=== PATIENT | female | born 1970 | race African-American/Black ===

== ENCOUNTER 2017-03-14 14:54 | Outpatient (CLI) | payer OTHER ==
--- NOTE | 2017-03-22 16:52 | MMO ---
BILATERAL SCREENING MAMMOGRAMS: DATE: 03/14/2017 COMPARISON: An outside exam from [facility] dated 2013. This patient's mammogram was interpreted with the assistance of computer-aided detection. FINDINGS: Heterogeneously dense glandular pattern. Benign-appearing calcifications. No evidence of mass or dis tortion. No interval change identified. IMPRESSION: BI-RADS 2: Benign findings. Recommend one year follow-up. POS: [facility]
== END 2017-03-14 14:55 | disposition home or self-care (01) ==
LOC: SCSMAMMO 14:54
PROVIDERS: ATTEND Internal Medicine
DX: Z12.31 Encounter for screening mammogram for malignant neoplasm of breast (principal)
CPT/HCPCS: 77067; G0202

== ENCOUNTER 2017-07-16 00:35 | Emergency (ER) | payer OTHER ==
[2017-07-16 01:26] LABS: #Basophils 0.2 thou/uL (0.0-0.2); #Eosinphils 0.1 thou/uL (0.0-0.7); #Lymphocytes 4.1 thou/uL (1.20-3.40); #Monocytes 0.8 thou/uL (0.11-0.59); #Neutrophils 5.5 thou/uL (1.40-6.50); %Basophils 1.5 % (0.0-1.0); %Eosinophils 1.4 % (0.0-10.0); %Lymphocytes 38.3 % (21.0-51.0); %Monocytes 7.5 % (0.0-10.0); %Neutrophils 51.4 % (42.0-75.0); Hemoglobin 13.8 g/dL (12.0-16.0); Mean Corpuscular HGB CONC 34.2 g/dL (32.0-36.0); Mean Corpuscular Hemoglobin 26.3 pg (27.0-31.0); Mean Corpuscular Volume 76.8 fl (81.0-99.0); Mean Platelet Volume 7.7 fL (7.4-10.4); Platelet Count 313 thou/uL (130-400); RBC Distribution Width 12.6 % (11.5-14.5); Red Blood Cell (RBC) Count 5.25 mill/uL (4.20-5.40); White Blood Cell (WBC) Count 10.7 thou/uL (4.8-10.8)
[2017-07-16 01:35] LABS: PTT 32.1 SEC (22.9-36.1)
[2017-07-16 01:36] LABS: D-Dimer Test 1.31 *mcg/mL (0.27-0.43); INR-International Normal Ratio 0.9; Prothrombin Time 12.6 SEC (12.0-14.7)
[2017-07-16 01:47] LABS: ALT (SGPT) 18 U/L (8-55); AST (SGOT) 17 U/L (5-34); Albumin 4.4 g/dL (3.5-5.0); Alkaline Phosphatase 79 U/L (40-150); Anion Gap 13 mmol/L (10-20); BUN (Urea Nitrogen) 20 mg/dL (7.0-18.7); Bilirubin, Total 0.2 mg/dL (0.2-1.2); Calc. Creatinine Clearance 0 mL/min (70-130); Calcium 9.6 mg/dL (7.8-10.44); Carbon Dioxide 26 mmol/L (22-29); Chloride 103 mmol/L (98-107); Estimated GFR-MDRD 59; Globulin 3.1 g/dL (2.4-3.5); Glucose 127 mg/dL (70-105); Potassium 3.7 mmol/L (3.5-5.1); Protein, Total 7.5 g/dL (6.0-8.3); Sodium 138 mmol/L (136-145)
[2017-07-16 01:50] LABS: CKMB 0.7 ng/mL (0-6.6); Troponin I Less than 0.010 ng/mL (< 0.028)
--- NOTE | 2017-07-16 07:55 | ULT ---
PRELIMINARY REPORT/[facility]/EMERGENCY AFTER HOURS PROCEDURE: EXAM: US Duplex Right Lower Extremity Veins EXAM DATE/TIME: Exam ordered 07/16/2017 2:46 AM CLINICAL HISTORY: 47 years old, female; Pain; Other: Rt leg pain worse in knee-calf TECHNIQUE: Real-time ultrasound scan of the veins of the right lower extremity with color Doppler flow, spectral waveform analysis and compression. COMPARISON: No relevant prior studies available. FINDINGS: Deep veins: Unremarkable. No DVT in the visualized common femoral, femoral, proximal deep femoral or popliteal veins. The veins demonstrate normal color flow, are normally compressible, with normal phas ic flow and/or augmentation response. Superficial veins: Unremarkable. No thrombus in the visualized great saphenous vein. Soft tissues: No acute findings. No popliteal cyst. IMPRESSION: Normal right lower extremity duplex venous ultrasound. Thank you for allowing us to participate in the care of your patient. Dictated and Authenticated by: Michael Lazo MD 07/16/2017 3:34 AM Central Time ([place] & [place]) FINAL REPORT EMERGENT AFTER HOURS RIGHT LOWER EXTREMITY VENOUS DOPPLER: IMPRESSION: I agree with the preliminary interpretation given by [facility]. No evidence for right lower extremity deep venous thrombosis sonographically. POS: [facility]
== END 2017-07-16 03:37 | disposition home or self-care (01) ==
LOC: ERS 00:35
DX: S86.911A Strain of unspecified muscle(s) and tendon(s) at lower leg level, right leg, initial encounter (principal); Z79.899 Other long term (current) drug therapy; I10 Essential (primary) hypertension; X50.9XXA Other and unspecified overexertion or strenuous movements or postures, initial encounter
CPT/HCPCS: 36415; 80053; 82553; 84484; 85025; 85379; 85610; 85730

== ENCOUNTER 2023-05-06 15:46 | Outpatient (CLI) | payer BC | END 2023-05-06 15:47 | disposition home or self-care (01) | LOC: BICRAD 15:46 | PROVIDERS: ATTEND Internal Medicine | DX: M79.671 Pain in right foot (principal); M19.071 Primary osteoarthritis, right ankle and foot; M20.11 Hallux valgus (acquired), right foot; M77.31 Calcaneal spur, right foot ==